=== PATIENT | male | born 1955 | race African-American/Black ===

== ENCOUNTER 2016-06-11 12:17 | Outpatient (CLI) | payer MEDICARE ==
[2016-06-11 14:29] LABS: Bilirubin Negative (Negative); Blood, Urine Negative (Negative); Glucose, Urine (Dipstick) 500 mg/dL (Negative); Ketone, Urine Negative (Negative); Nitrite Negative (Negative); Protein, Urine (Dipstick) Negative (Neg-Trace); Urobilinogen 0.2 mg/dL (0.2-1.0)
[2016-06-11 14:30] LABS: #Basophils 0.1 thou/uL (0.0-0.2); #Eosinphils 0.3 thou/uL (0.0-0.7); #Lymphocytes 1.3 thou/uL (1.20-3.40); #Monocytes 0.4 thou/uL (0.11-0.59); #Neutrophils 4.1 thou/uL (1.40-6.50); %Basophils 1.1 % (0.0-1.0); %Eosinophils 4.8 % (0.0-10.0); %Lymphocytes 20.7 % (21.0-51.0); %Monocytes 5.7 % (0.0-10.0); Hematocrit 41.5 % (42.0-52.0); Mean Platelet Volume 5.7 fL (7.4-10.4); Red Blood Cell (RBC) Count 4.59 mill/uL (4.70-6.10); White Blood Cell (WBC) Count 6.1 thou/uL (4.8-10.8)
[2016-06-11 14:40] LABS: ALT (SGPT) 19 U/L (0-55); AST (SGOT) 17 U/L (5-34); Alkaline Phosphatase 52 U/L (40-150); Anion Gap 13 mmol/L (10-20); BUN (Urea Nitrogen) 13 mg/dL (8.4-25.7); Bilirubin, Total 0.3 mg/dL (0.2-1.2); Calc. Creatinine Clearance 0 mL/min (70-130); Calcium 9.1 mg/dL (7.8-10.44); Carbon Dioxide 25 mmol/L (23-31); Chloride 104 mmol/L (98-107); Estimated GFR-MDRD Greater than 90; Globulin 2.8 g/dL (2.4-3.5); LDL Cholesterol, Calculated 88 mg/dL; Protein, Total 6.7 g/dL (5.8-8.1)
[2016-06-11 15:25] LABS: Hemoglobin A1c 10.2 % (4.0-6.0)
[2016-06-12 17:43] LABS: Microalbumin Urine Less than 1.0 mg/dL (0.5-50.0)
== END 2016-06-11 12:18 ==
LOC: NAVSJIPCSP 12:17
PROVIDERS: ATTEND Internal Medicine
DX: Z12.5 Encounter for screening for malignant neoplasm of prostate (principal); E11.9 Type 2 diabetes mellitus without complications; I11.9 Hypertensive heart disease without heart failure; E78.5 Hyperlipidemia, unspecified; Z79.899 Other long term (current) drug therapy
CPT/HCPCS: 36415; 80053; 80061; 81003; 82043; 82570; 83036; 85025; G0103

== ENCOUNTER 2016-09-17 11:59 | Outpatient (CLI) | payer MEDICARE ==
[2016-09-17 13:45] LABS: Cardiac Risk 4.1 (Less than 4.5)
== END 2016-09-17 12:00 ==
LOC: NAVSJIPCSP 11:59
PROVIDERS: ATTEND Internal Medicine
DX: E78.5 Hyperlipidemia, unspecified (principal); E11.9 Type 2 diabetes mellitus without complications; Z79.899 Other long term (current) drug therapy
CPT/HCPCS: 36415; 80061; 83036

== ENCOUNTER 2017-01-26 19:45 | Emergency (ER) | payer MEDICARE ==
[2017-01-26] MEDS ORDERED: Ondansetron HCl/PF 4 MG/2 ML Vial ONE (20:18)
[2017-01-26] MEDS ORDERED: Fentanyl 100 MCG/2 ML VIAL ONE (20:18)
[2017-01-26 20:25] LABS: #Basophils 0.1 thou/uL (0.0-0.2); #Eosinphils 0.2 thou/uL (0.0-0.7); #Lymphocytes 1.4 thou/uL (1.20-3.40); #Monocytes 0.5 thou/uL (0.11-0.59); %Eosinophils 2.5 % (0.0-10.0); %Lymphocytes 16.7 % (21.0-51.0); %Monocytes 6.4 % (0.0-10.0); %Neutrophils 73.4 % (42.0-75.0); Hemoglobin 14.3 g/dL (14.0-18.0); Mean Corpuscular HGB CONC 31.9 g/dL (32.0-36.0); Mean Corpuscular Volume 87.6 fl (80.0-94.0); Platelet Count 300 thou/uL (130-400); RBC Distribution Width 12.3 % (11.5-14.5); Red Blood Cell (RBC) Count 5.12 mill/uL (4.70-6.10); White Blood Cell (WBC) Count 8.1 thou/uL (4.8-10.8)
[2017-01-26 20:36] LABS: Bilirubin Negative (Negative); Blood, Urine Trace (Negative); Clarity Clear (Clear); Glucose, Urine (Dipstick) Negative (Negative); Leukocyte Negative (Negative); Nitrite Negative (Negative); Protein, Urine (Dipstick) Negative (Neg-Trace); Urobilinogen 0.2 mg/dL (0.2-1.0); pH, Urine 5.5 (5.0-9.0)
[2017-01-26 20:37] LABS: Bacteria/HPF None Seen HPF (None Seen); Squamous Epithelial 0-3 HPF (0-3); WBC/HPF None Seen HPF (0-3)
[2017-01-26 20:38] LABS: ALT (SGPT) 17 U/L (8-55); AST (SGOT) 18 U/L (5-34); Albumin 4.3 g/dL (3.4-4.8); Alkaline Phosphatase 68 U/L (40-150); Anion Gap 14 mmol/L (10-20); BUN (Urea Nitrogen) 9 mg/dL (8.4-25.7); Bilirubin, Total 0.4 mg/dL (0.2-1.2); Calc. Creatinine Clearance 0 mL/min (70-130); Calcium 9.8 mg/dL (7.8-10.44); Carbon Dioxide 24 mmol/L (23-31); Chloride 103 mmol/L (98-107); Estimated GFR-MDRD 86; Glucose 194 mg/dL (80-115); Potassium 3.8 mmol/L (3.5-5.1); Protein, Total 8.3 g/dL (5.8-8.1); Sodium 137 mmol/L (136-145)
--- NOTE | 2017-01-26 22:26 | CT ---
ABDOMEN CT WITH CONTRAST PELVIC CT WITH CONTRAST 01/26/17 COMPARISON: 11/16/12 HISTORY: Constipation. Abdominal pain. Symptoms x3 days. TECHNIQUE: Abdomen and pelvic CT performed with IV and oral contrast. Coronal reformatted images are submitted for interpretation. FINDINGS: ABDOMEN CT: Lung bases are clear. Stable elevation of the right hemidiaphragm. Heart size is normal. No signific ant pericardial fluid. The visualized aorta has a normal caliber. Intra and extrahepatic portal vein is patent. The liver, spleen, and adrenal glands have appropriate enhancement . The gallbladder is unremarkable. Scattered nonspecific mesenteric lymph nodes with mild stranding of the central abdominal mesentery, just inferior to the head of the pancreas. Possibility of focal pancreatitis at the head of the sauceda creas and uncinate process cannot be excluded. There are adjacent nonspecific lymph nodes, likely re active. Gastric mucosa, duodenum and multiple normal caliber small bowel loops are noted. Postsurgical cuevas e with a right hemicolectomy is noted. No evidence of small bowel or colonic obstruction. There is f luid attenuation in the colon. There is symmetric enhancement of the kidneys. Bilaterally, no obstructive uropathy. PELVIC CT: No mass, lymphadenopathy, free air or free fluid. There are no osteoblastic or osteolytic lesions. IMPRESSION: 1. Mild peripancreatic stranding at the head of an uncinate process of the pancreas. Correlate for focal pancreatitis. Associated reactive lymph nodes are noted. 2. Fluid attenuation throughout the majority of the colon. No CT evidence of constipation. POS: [facility]
== END 2017-01-26 23:15 | disposition home or self-care (01) ==
LOC: NAV ERS 19:45
DX: K59.00 Constipation, unspecified (principal); I10 Essential (primary) hypertension; E78.5 Hyperlipidemia, unspecified; E11.9 Type 2 diabetes mellitus without complications; F32.9 Major depressive disorder, single episode, unspecified; Z87.891 Personal history of nicotine dependence; Z79.82 Long term (current) use of aspirin; Z79.84 Long term (current) use of oral hypoglycemic drugs; Z79.899 Other long term (current) drug therapy
CPT/HCPCS: 74177; 80053; 81003; 81015; 85025; 96374; 96375; J2405; J3010

== ENCOUNTER 2017-01-29 09:08 | Outpatient (CLI) | payer MEDICARE ==
[2017-01-29 12:49] LABS: Cardiac Risk 3.6 (Less than 4.5); Hemoglobin A1c 10.1 % (4.0-6.0)
== END 2017-01-29 09:09 | disposition home or self-care (01) ==
LOC: NAVSJIPCSP 09:08
PROVIDERS: ATTEND Internal Medicine
DX: E78.5 Hyperlipidemia, unspecified (principal); E11.9 Type 2 diabetes mellitus without complications; Z79.899 Other long term (current) drug therapy
CPT/HCPCS: 36415; 80061; 83036

== ENCOUNTER 2017-02-11 05:00 | Emergency (ER) | payer MEDICARE ==
[2017-02-11] MEDS ORDERED: Acetaminophen/Codeine 30-300mg Tablet ONE (05:18)
[2017-02-11] MEDS ORDERED: Ibuprofen 200 MG TAB ONE (05:43)
--- NOTE | 2017-02-11 07:36 | RAD ---
THREE VIEWS OF THE RIGHT SHOULDER: INDICATIONS: Right shoulder pain. COMPARISON: None. FINDINGS: No acute fracture or subluxation is evident. There is moderate AC joint osteoarthrosis. There is a calcified granuloma within the right mid lung. IMPRESSION: 1. No acute osseous abnormality. 2. Moderate acromioclavicular joint osteoarthrosis. 3. Findings of prior granulomatous disease. POS: [facility]
== END 2017-02-11 05:50 | disposition home or self-care (01) ==
LOC: NAV ERS 05:00
DX: M75.101 Unspecified rotator cuff tear or rupture of right shoulder, not specified as traumatic (principal); E11.9 Type 2 diabetes mellitus without complications; E78.5 Hyperlipidemia, unspecified; I10 Essential (primary) hypertension; F32.9 Major depressive disorder, single episode, unspecified; Z87.891 Personal history of nicotine dependence; Z79.899 Other long term (current) drug therapy; Z79.82 Long term (current) use of aspirin; Z79.84 Long term (current) use of oral hypoglycemic drugs

== ENCOUNTER 2017-04-08 11:50 | Outpatient (CLI) | payer MEDICARE ==
--- NOTE | 2017-04-08 20:31 | RAD ---
THREE VIEWS OF THE RIGHT WRIST 04/08/17 INDICATION: Right wrist pain. COMPARISON: None. FINDINGS: There is chondrocalcinosis involving the TFC and hyaline cartilage of the right wrist. No periarticu lar erosive change is evident. Bone mineralization is normal. no acute fracture is evident. Carpal a lignment is normal appearing. There is diffuse soft tissue swelling of the distal right forearm and right wrist which is nonspecific. IMPRESSION: 1. Chondrocalcinosis of the radiocarpal joint can be see with entities such as CPPD deposition disease. 2. No acute fracture or subluxation is evident. 3. Nonspecific soft tissue swelling of the distal right forearm and right wrist. POS: [facility]
== END 2017-04-08 11:51 | disposition home or self-care (01) ==
LOC: NAV RAD 11:50
PROVIDERS: ATTEND Internal Medicine
DX: M25.531 Pain in right wrist (principal); M25.431 Effusion, right wrist; M11.231 Other chondrocalcinosis, right wrist

== ENCOUNTER 2017-04-09 10:56 | Emergency (ER) | payer MEDICARE ==
[2017-04-09 11:29] LABS: #Basophils 0.1 thou/uL (0.0-0.2); #Eosinphils 0.1 thou/uL (0.0-0.7); #Lymphocytes 1.4 thou/uL (1.20-3.40); #Monocytes 0.5 thou/uL (0.11-0.59); #Neutrophils 4.6 thou/uL (1.40-6.50); %Basophils 1.1 % (0.0-1.0); %Eosinophils 2.2 % (0.0-10.0); %Lymphocytes 20.8 % (21.0-51.0); %Monocytes 7.4 % (0.0-10.0); %Neutrophils 68.5 % (42.0-75.0); Hemoglobin 12.6 g/dL (14.0-18.0); Mean Corpuscular HGB CONC 32.5 g/dL (32.0-36.0); Mean Corpuscular Hemoglobin 28.9 pg (27.0-31.0); Mean Corpuscular Volume 89.1 fl (80.0-94.0); Mean Platelet Volume 6.3 fL (7.4-10.4); Platelet Count 289 thou/uL (130-400); Red Blood Cell (RBC) Count 4.37 mill/uL (4.70-6.10); White Blood Cell (WBC) Count 6.7 thou/uL (4.8-10.8)
[2017-04-09 11:43] LABS: ALT (SGPT) 9 U/L (8-55); AST (SGOT) 9 U/L (5-34); Albumin 3.7 g/dL (3.4-4.8); Alkaline Phosphatase 73 U/L (40-150); Anion Gap 15 mmol/L (10-20); BUN (Urea Nitrogen) 10 mg/dL (8.4-25.7); Bilirubin, Total 0.4 mg/dL (0.2-1.2); Calc. Creatinine Clearance 0 mL/min (70-130); Calcium 9.8 mg/dL (7.8-10.44); Carbon Dioxide 26 mmol/L (23-31); Chloride 100 mmol/L (98-107); Estimated GFR-MDRD Greater than 90; Glucose 186 mg/dL (80-115); Potassium 3.7 mmol/L (3.5-5.1); Protein, Total 7.7 g/dL (5.8-8.1); Sodium 137 mmol/L (136-145)
[2017-04-09 11:44] LABS: CKMB 1.2 ng/mL (0-6.6); Troponin I Less than 0.010 ng/mL (< 0.028)
--- NOTE | 2017-04-09 12:28 | RAD ---
FRONTAL VIEW CHEST: Clinical history: Chest pain. FINDINGS: There are subtle hazy densities of the lower lung zones bilaterally. The cardiac silhouette is enlar ged. Vascular prominence at each hilar region present. There is prominent degenerative irregularity at the bilateral AC joints. High density foci of the chest bilaterally may relate to granulomatous c alcifications and/or vasculature. IMPRESSION: Prominent cardiac silhouette with hazy densities in the lower hemithoraces bilaterally. Findings ind icate edema/CHF. The possibility of superimposed pleural fluid not excluded although limited by port able semi-upright positioning. Consider follow up with dedicated two view chest for further evaluati on. POS: [facility]
[2017-04-09 14:31] LABS: Troponin I Less than 0.010 ng/mL (< 0.028)
== END 2017-04-09 15:18 | disposition home or self-care (01) ==
LOC: NAV ERS 10:56
DX: R07.89 Other chest pain (principal); M79.641 Pain in right hand; E11.9 Type 2 diabetes mellitus without complications; E78.5 Hyperlipidemia, unspecified; I10 Essential (primary) hypertension; F20.0 Paranoid schizophrenia; F32.9 Major depressive disorder, single episode, unspecified; Z87.891 Personal history of nicotine dependence; Z79.84 Long term (current) use of oral hypoglycemic drugs; Z79.899 Other long term (current) drug therapy
CPT/HCPCS: 71010; 80053; 82553; 84484; 85025; 93005

== ENCOUNTER 2017-07-08 14:54 | Emergency (ER) | payer MEDICARE | END 2017-07-08 15:17 | disposition home or self-care (01) | LOC: NAV ERS 14:54 | DX: M10.9 Gout, unspecified (principal); I10 Essential (primary) hypertension; E11.9 Type 2 diabetes mellitus without complications; E78.5 Hyperlipidemia, unspecified; Z87.891 Personal history of nicotine dependence; Z79.899 Other long term (current) drug therapy | CPT/HCPCS: 99283 ==

== ENCOUNTER 2017-12-23 08:21 | Emergency (ER) | payer MEDICARE ==
[2017-12-23] MEDS ORDERED: Ondansetron ODT 4 MG TAB ONE (08:39)
== END 2017-12-23 08:42 | disposition home or self-care (01) ==
LOC: NAV ERS 08:21
DX: R11.2 Nausea with vomiting, unspecified (principal); E11.9 Type 2 diabetes mellitus without complications; E78.5 Hyperlipidemia, unspecified; I10 Essential (primary) hypertension; F20.0 Paranoid schizophrenia; F32.9 Major depressive disorder, single episode, unspecified; Z87.891 Personal history of nicotine dependence; Z79.899 Other long term (current) drug therapy
CPT/HCPCS: 99283; Q0162

== ENCOUNTER 2020-08-13 16:45 | Emergency (ER) | payer MEDICARE, SELFPAY | END 2020-08-13 17:20 | disposition home or self-care (01) | LOC: NAV ERS 16:45 | DX: E11.65 Type 2 diabetes mellitus with hyperglycemia (principal); I48.91 Unspecified atrial fibrillation; E78.5 Hyperlipidemia, unspecified; I10 Essential (primary) hypertension; Z87.891 Personal history of nicotine dependence; Z79.84 Long term (current) use of oral hypoglycemic drugs; Z79.899 Other long term (current) drug therapy | CPT/HCPCS: 36416; 99283 ==

== ENCOUNTER 2021-07-19 17:10 | Observation (INO) | payer MEDICARE ==
[~2021-07-19 17:10] MED LIST: Iopamidol 370 76% 100 ML VIAL ONE
[2021-07-19] MEDS ORDERED: Pantoprazole 40 MG VIAL ONE ×2 (17:34)
[2021-07-19 17:37] LABS: #Basophils 0.1 thou/uL (0.0-0.2); #Eosinphils 0.4 thou/uL (0.0-0.7); #Lymphocytes 1.2 thou/uL (1.20-3.40); #Monocytes 0.5 thou/uL (0.11-0.59); #Neutrophils 6.1 thou/uL (1.40-6.50); %Basophils 0.9 % (0.0-1.0); %Eosinophils 4.8 % (0.0-10.0); %Lymphocytes 13.9 % (21.0-51.0); %Monocytes 6.3 % (0.0-10.0); %Neutrophils 74.1 % (42.0-75.0); Hemoglobin 13.5 g/dL (14.0-18.0); Mean Corpuscular HGB CONC 32.6 g/dL (32.0-36.0); Mean Corpuscular Hemoglobin 30.4 pg (27.0-31.0); Mean Corpuscular Volume 93.1 fL (78.0-98.0); Mean Platelet Volume 5.9 fL (7.4-10.4); Platelet Count 304 thou/uL (130-400); RBC Distribution Width 12.7 % (11.5-14.5); Red Blood Cell (RBC) Count 4.46 mill/uL (4.70-6.10); White Blood Cell (WBC) Count 8.3 thou/uL (4.8-10.8)
[2021-07-19] MEDS ORDERED: Thiamine HCl 200 MG/2 ML VIAL ONE (17:48)
[2021-07-19] MEDS ORDERED: Multivit, Adult Inj 10 ML VIAL ONE (17:48)
[2021-07-19] MEDS ORDERED: Dextrose 5 %-0.45 % NaCl 1,000 ML ONE (17:51)
[2021-07-19 18:01] LABS: Prothrombin Time 13.6 sec (12.0-14.7)
[2021-07-19 18:02] LABS: PTT 28.4 sec (22.9-36.1)
[2021-07-19] MEDS ORDERED: Ondansetron PF 4 MG/2 ML Vial ONE (18:08)
[2021-07-19 18:11] LABS: ALT (SGPT) 17 U/L (8-55); AST (SGOT) 14 U/L (5-34); Albumin 3.9 g/dL (3.4-4.8); Alkaline Phosphatase 67 U/L (40-110); Anion Gap 16 mmol/L (10-20); BUN (Urea Nitrogen) 11 mg/dL (8.4-25.7); Bilirubin, Total 0.4 mg/dL (0.2-1.2); CK (CPK) 112 U/L (30-200); Calc. Creatinine Clearance 0 mL/min (70-130); Calcium 9.8 mg/dL (7.8-10.44); Carbon Dioxide 23 mmol/L (23-31); Chloride 99 mmol/L (98-107); Globulin 3.7 g/dL (2.4-3.5); Glucose 383 mg/dL (80-115); Lipase 231 U/L (8-78); Potassium 4.1 mmol/L (3.5-5.1); Protein, Total 7.6 g/dL (5.8-8.1); Sodium 134 mmol/L (136-145)
[2021-07-19 18:56] LABS: Bilirubin Negative (Negative); Blood, Urine Negative (Negative); Clarity Clear (Clear); Glucose, Urine (Dipstick) >=1000 mg/dL (Negative); Ketone, Urine Negative (Negative); Leukocyte Negative (Negative); Nitrite Negative (Negative); Protein, Urine (Dipstick) Negative (Neg-Trace); Urobilinogen 0.2 mg/dL (Less than 2); pH, Urine 5.5 (5.0-9.0)
[2021-07-19 19:39] LABS: SARS-CoV-2 NAA Rapid Test Not Detected (NotDetected)
[2021-07-19] MEDS ORDERED: Morphine 4 MG/ML VIAL SLOW IVP PRN ×4 (21:44→22:12)
[2021-07-19 21:45] VITALS: BMI 26.6
[2021-07-19] MEDS ORDERED: Ketorolac Tromethamine 30 MG/ML VIAL IVP PRN (21:45)
[2021-07-19] MEDS ORDERED: Ondansetron PF 4 MG/2 ML Vial IVP PRN (21:45)
[2021-07-19] MEDS ORDERED: Dextrose 50% Abboject 50 ML SYRINGE SLOW IVP PRN (21:47)
[2021-07-19] MEDS ORDERED: Dextrose 5% in Water 1,000 ML IV PRN (22:00)
[2021-07-19] MEDS ORDERED: Insulin Regular 300 UNITS/3 ML VIAL SC PRN (22:00)
[2021-07-19] MEDS ORDERED: cloNIDine 0.1 MG TAB PO PRN (22:14)
[2021-07-19] MEDS: 1/2 NS w/KCL 20 mEq 1,000 ML IV SCH (22:17)
[2021-07-19] MEDS ORDERED: Hydrochlorothiazide 25 MG TAB PO SCH (22:30)
[2021-07-19] MEDS ORDERED: Atorvastatin Calcium 40 MG TAB PO SCH (22:30)
[2021-07-19] MEDS ORDERED: Lisinopril 20 MG TAB PO SCH (22:30)
[2021-07-19] MEDS ORDERED: risperiDONE 0.5 MG TAB PO SCH (22:30)
[2021-07-19] MEDS ORDERED: DULAGLUTIDE 0.75 MG SC SCH (22:30)
[2021-07-20] MEDS: 1/2 NS w/KCL 20 mEq 1,000 ML IV SCH (05:26)
[2021-07-20 06:42] LABS: #Basophils 0.1 thou/uL (0.0-0.2); #Eosinphils 0.4 thou/uL (0.0-0.7); #Lymphocytes 0.8 thou/uL (1.20-3.40); #Monocytes 0.4 thou/uL (0.11-0.59); #Neutrophils 4.9 thou/uL (1.40-6.50); %Basophils 1.4 % (0.0-1.0); %Lymphocytes 11.7 % (21.0-51.0); %Monocytes 6.5 % (0.0-10.0); %Neutrophils 74.3 % (42.0-75.0); Hemoglobin 13.4 g/dL (14.0-18.0); Mean Corpuscular HGB CONC 32.8 g/dL (32.0-36.0); Mean Corpuscular Hemoglobin 30.1 pg (27.0-31.0); Mean Platelet Volume 5.9 fL (7.4-10.4); Platelet Count 304 thou/uL (130-400); RBC Distribution Width 12.4 % (11.5-14.5); Red Blood Cell (RBC) Count 4.44 mill/uL (4.70-6.10); White Blood Cell (WBC) Count 6.6 thou/uL (4.8-10.8)
[2021-07-20 06:54] LABS: ALT (SGPT) 15 U/L (8-55); AST (SGOT) 14 U/L (5-34); Albumin 3.7 g/dL (3.4-4.8); Alkaline Phosphatase 63 U/L (40-110); Anion Gap 13 mmol/L (10-20); BUN (Urea Nitrogen) 8 mg/dL (8.4-25.7); Bilirubin, Total 0.4 mg/dL (0.2-1.2); Calc. Creatinine Clearance 102 mL/min (70-130); Calcium 9.7 mg/dL (7.8-10.44); Carbon Dioxide 25 mmol/L (23-31); Chloride 100 mmol/L (98-107); Globulin 3.7 g/dL (2.4-3.5); Glucose 262 mg/dL (80-115); Lipase 117 U/L (8-78); Potassium 3.9 mmol/L (3.5-5.1); Protein, Total 7.4 g/dL (5.8-8.1); Sodium 134 mmol/L (136-145)
[2021-07-20] MEDS: Amiodarone 200 MG TAB PO SCH (08:38)
[2021-07-20] MEDS: Allopurinol 100 MG TAB PO SCH (08:38)
[2021-07-20] MEDS: Hydrochlorothiazide 25 MG TAB PO SCH ×2 (08:38→21:08)
[2021-07-20] MEDS: Lisinopril 20 MG TAB PO SCH ×2 (08:41→21:08)
[2021-07-20] MEDS: traMADol HCl 50 MG TAB PO PRN ×2 (08:48→18:35)
[2021-07-20] MEDS: HumaLOG 300 UNITS/3 ML VIAL SC PRN ×2 (17:28→21:09)
[2021-07-20] MEDS ORDERED: Atorvastatin Calcium 40 MG TAB PO SCH (21:00)
[2021-07-20] MEDS ORDERED: risperiDONE 0.5 MG TAB PO SCH (21:00)
[2021-07-21] MEDS: HumaLOG 300 UNITS/3 ML VIAL SC PRN (06:05)
[2021-07-21] MEDS: Allopurinol 100 MG TAB PO SCH (08:47)
[2021-07-21] MEDS: Hydrochlorothiazide 25 MG TAB PO SCH (08:47)
[2021-07-21] MEDS: Amiodarone 200 MG TAB PO SCH (08:47)
[2021-07-21 08:48] VITALS: BP 116/75
[2021-07-21] MEDS: Lisinopril 20 MG TAB PO SCH (08:48)
[2021-07-21 08:52] VITALS: TEMP 98.1
== END 2021-07-21 10:50 | disposition home or self-care (01) ==
LOC: NAV ERS 17:10 → NAV ACUTE 20:22 → INTOOBSV 20:22
PROVIDERS: ADMIT Family Medicine; ATTEND Family Medicine
DX: K85.20 Alcohol induced acute pancreatitis without necrosis or infection (principal); F10.10 Alcohol abuse, uncomplicated; E11.65 Type 2 diabetes mellitus with hyperglycemia; E78.2 Mixed hyperlipidemia; I10 Essential (primary) hypertension; M10.9 Gout, unspecified; I48.91 Unspecified atrial fibrillation; Z86.16 Personal history of COVID-19; Z87.891 Personal history of nicotine dependence; Z79.84 Long term (current) use of oral hypoglycemic drugs; Z79.899 Other long term (current) drug therapy; Z20.822 Contact with and (suspected) exposure to COVID-19
CPT/HCPCS: 36416; 74177; 80053; 81003; 82274; 82550; 83605; 83690; 85025; 85610; 85730; 96365; 96368; 96375; C9113; G0378; J1815; J2405; J3411; J3480; J7042; Q9967; U0002

== ENCOUNTER 2022-02-22 15:29 | Emergency (ER) | payer MEDICARE, OTHER | END 2022-02-22 16:05 | disposition home or self-care (01) | LOC: NAV ERS 15:29 | DX: K02.9 Dental caries, unspecified (principal); E11.9 Type 2 diabetes mellitus without complications; E78.5 Hyperlipidemia, unspecified; I10 Essential (primary) hypertension; Z87.891 Personal history of nicotine dependence | CPT/HCPCS: 99282 ==

== ENCOUNTER 2023-05-12 11:53 | Emergency (ER) | payer OTHER ==
[2023-05-12 12:20] LABS: #Basophils 0.1 thou/uL (0.0-0.2); #Eosinphils 0.2 thou/uL (0.0-0.7); #Lymphocytes 0.9 thou/uL (1.20-3.40); #Monocytes 0.6 thou/uL (0.11-0.59); #Neutrophils 5.7 thou/uL (1.40-6.50); %Basophils 0.8 % (0.0-1.0); %Eosinophils 3.2 % (0.0-10.0); %Monocytes 7.8 % (0.0-10.0); %Neutrophils 76.2 % (42.0-75.0); Hematocrit 45.3 % (42.0-52.0); Hemoglobin 14.6 g/dL (14.0-18.0); Mean Corpuscular HGB CONC 32.2 g/dL (32.0-36.0); Mean Corpuscular Hemoglobin 30.8 pg (27.0-31.0); Mean Corpuscular Volume 95.8 fl (78.0-98.0); Mean Platelet Volume 6.3 fL (7.4-10.4); Platelet Count 264 10x3/uL (130-400); Red Blood Cell (RBC) Count 4.73 mill/uL (4.70-6.10); White Blood Cell (WBC) Count 7.5 10x3/uL (4.8-10.8)
[2023-05-12 12:36] LABS: ALT (SGPT) 15 U/L (8-55); AST (SGOT) 14 U/L (5-34); Alkaline Phosphatase 56 U/L (40-110); Anion Gap 14 mmol/L (10-20); BUN (Urea Nitrogen) 12 mg/dL (8.4-25.7); Bilirubin, Total 0.5 mg/dL (0.2-1.2); Calc. Creatinine Clearance 0 mL/min (70-130); Calcium 10.2 mg/dL (7.8-10.44); Carbon Dioxide 28 mmol/L (23-31); Chloride 98 mmol/L (98-107); Estimated GFR 82; Globulin 3.7 g/dL (2.4-3.5); Glucose 285 mg/dL (80-115); Lipase 15 U/L (8-78); Potassium 4.1 mmol/L (3.5-5.1); Protein, Total 7.7 g/dL (5.8-8.1); Sodium 136 mmol/L (136-145)
== END 2023-05-12 14:12 | disposition home or self-care (01) ==
LOC: NAV ERS 11:53
DX: R09.1 Pleurisy (principal); E11.9 Type 2 diabetes mellitus without complications; I10 Essential (primary) hypertension
CPT/HCPCS: 71045; 80053; 83690; 84484; 85025; 93005